=== PATIENT | female | born 1950 | race Caucasian/White ===

== ENCOUNTER 2017-01-20 02:47 | Emergency (ER) | payer OTHER ==
[~2017-01-20 02:47] MED LIST: ALL DAY10 MG OR; ALPH-E400 UNIT OR; AMBIEN5 MG PO; AMLODIPINE10 MG PO; AMLODIPINE5 MG OR; AMOXICILLIN/CL875 MG PO; AMOXICILLIN875 MG OR; AMOXICILLIN875 MG PO; AMPICILLIN500 MG PO; ANTI-FUNGAL12 EX; ASA LOW DOSE81 MG OR; ASA OR; ATARAX OR; AUGMENTIN875TAB OR; AUGMENTIN875TAB PO; AZITHROMYCIN500 MG PO; BACTRIM DS1 TAB PO; BENADRYL 50MG C50 MG OR; BENADRYL25 MG OR; BENAZEPRIL20 MG OR; BICILLIN L1.2 MU/SYR IM; CALCIUM600 M1; CEFDINIR300 MG PO; COBAL-10001000 MCG IJ; DEPO-MEDROL80 MG/ML IM; DIFLUCAN150 MG OR; ESTRACE VAG0.1 MG/GM VA; FENOFIBRATE48 MG PO; FISH OIL1000 MG PO; FLONASE NASAL50 MCG; FLUCONAZOLE150 MG PO; FREESTYLE XX; GLIPIZIDE5 MG PO; IRON18 M1 OR; K-DUR/KLOR-CON10 ME1 OR; K-DUR/KLOR-CON10 MEQ PO; LASIX 40 MG TAB40 MG OR; LASIX 40 MG TAB40 MG PO; LOTREL1 CA5 OR; MACROBID100 MG OR; MECLIZINE25 MG OR; MEDDOSEPAK OR; MEDROL4 M1 OR; METFORMIN500 M1 OR; METFORMIN500 M1 PO; METFORMIN500 M2 PO; MUCINEX600 MG PO; NYSTATIN100000 M3 TOP; OMNICEF300 MG OR; OMNICEF300 MG PO; PHENERGAN12.5 MG/TA PO; PHENERGAN25 MG/ML IM; PNEUMOVAX 23 IM; POT CHLORIDE8 MEQ OR; PROMETHAZINE12.5 MG PO; ROBITUSSIN AC10 ML PO; ROZEREM8 MG OR; SERTRALINE50 MG OR; ST JOSEPH AS81 MG PO; TAGAMET300 MG OR; TAGAMET300 MG PO; TESSALON200 MG PO; TRAVATAN0.004 %; TRAVATAN0.004 % OP; VIT E & C EX; VITAMIN C500 MG PO; ZOSTAVAX IM; ZYRTEC10 M2 PO
[2017-01-21] MEDS ORDERED: AMITRIPTYLIN25 MG PO (03:13)
== END 2017-01-20 02:53 | disposition left against medical advice (07) | DRG 951 ==
LOC: ED 02:47 → LWOBS 02:53
DX: Z91.19 Patient's noncompliance with other medical treatment and regimen (principal)

== ENCOUNTER 2017-01-21 02:53 | Emergency (ER) | payer OTHER ==
[~2017-01-21] VITALS: Ht 172.7 cm; Wt 114.0 kg
[2017-01-21] MEDS ORDERED: AMITRIPTYLIN25 MG PO (03:13)
[2017-01-21 03:41] LABS: HEMATOCRIT 37.6 % (37.0-47.0); HEMOGLOBIN 12.8 g/dl (12.0-16.0); IMMATURE GRANULOCYTES 0.7 % (0.0-1.0); MEAN CELL VOLUME 79.7 fL CALC (80.0-100.0); MEAN CORPUSCULAR HGB 27.1 pG CALC (26.0-32.0); NEUT# 8.5 thou/uL (2.00-7.15); RED BLOOD COUNT 4.72 mill/uL (4.20-5.60); RED CELL DISTRI WIDTH 14.7 % (11.5-15.5)
[2017-01-21 04:00] LABS: ALBUMIN 4.6 g/dL (3.2-5.0); ALKALINE PHOSPHATASE 84 u/l (38-126); ANION GAP 18 (6-22 (CALC)); BILIRUBIN, TOTAL 0.4 mg/dL (0.0-1.4); BUN 18 mg/dL (8-23); BUN/CREATININE RATIO 24 (12-20 (CALC)); CALCIUM 9.4 mg/dL (8.4-10.2); CARBON DIOXIDE 22 mmol/l (22-30); CHLORIDE 107 mmol/l (95-108); CREATININE 0.7 mg/dL (0.5-1.0); GFR > 60 ML/MIN (>=60 (CALC)); GFR FOR AFR.AMER. > 60 ML/MIN (>=60 (CALC)); GLUCOSE 147 mg/dL (82-115); POTASSIUM 3.6 mmol/l (3.5-5.1); SGOT/AST 32 u/l (9-36); SGPT/ALT 48 u/l (11-66); SODIUM 144 mmol/l (137-146)
[2017-01-21 04:01] LABS: PROTHROMBIN TIME 11.2 SECONDS (9.0-12.5)
[2017-01-21 04:12] LABS: MYOGLOBIN 37 ng/mL (0 - 62)
[2017-01-21 05:04] VITALS: BP 138/84
== END 2017-01-21 05:04 | disposition home or self-care (01) | DRG 310 ==
LOC: ED 02:53
PROVIDERS: Emergency Medicine
DX: R00.2 Palpitations (principal)

== ENCOUNTER 2018-08-12 07:31 | Inpatient (IN) | payer MEDICARE, OTHER ==
[~2018-08-12] VITALS: Ht 165.1 cm; Wt 107.2 kg
[~2018-08-12 07:31] MED LIST changes: +AMITRIPTYLIN25 MG PO; +ATENOLOL50 MG PO; +CENTRUM PO; +LIPITOR20 M1 PO; +NORVASC10 M1 PO; +VALSARTAN40 MG PO
--- NOTE | 2018-08-12 07:37 | NUR ---
PT AMBULATED TO ROOM WITH A STEADY GAIT FOR BEDSIDE TRIAGE.
[2018-08-12 08:28] LABS: HEMATOCRIT 35.7 % (37.0-47.0); HEMOGLOBIN 11.9 g/dl (12.0-16.0); IMMATURE GRANULOCYTES 1.7 % (0.0-5.0); MEAN CELL VOLUME 82.8 fL CALC (80.0-100.0); MEAN CORPUSCULAR HGB 27.6 pG CALC (26.0-32.0); MEAN CORPUSCULAR HGB CONC 33.3 g/L CALC (32.0-36.0); NEUT# 6.44 thou/uL (2.00-7.15); RED BLOOD COUNT 4.31 mill/uL (4.20-5.60); RED CELL DISTRI WIDTH 15.1 % (11.5-15.5)
--- NOTE | 2018-08-12 08:30 | NUR ---
PT SUPINE IN BED, NO COMPLAINTS OF PAIN OR DISCOMFORT VOICED.
[2018-08-12 08:40] LABS: ALKALINE PHOSPHATASE 68 u/l (38-126); ANION GAP 16 (6-22 (CALC)); BILIRUBIN, TOTAL 0.6 mg/dL (0.0-1.4); BUN 17 mg/dL (8-23); BUN/CREATININE RATIO 23 (12-20 (CALC)); CARBON DIOXIDE 21 mmol/l (22-30); CHLORIDE 105 mmol/l (95-108); CREATININE 0.8 mg/dL (0.5-1.0); GFR > 60 ML/MIN (>=60 (CALC)); GFR FOR AFR.AMER. > 60 ML/MIN (>=60 (CALC)); POTASSIUM 3.9 mmol/l (3.5-5.1); SGOT/AST 37 u/l (9-36); SODIUM 138 mmol/l (137-146); TOTAL PROTEIN 7.3 g/dL (6.3-8.2)
--- NOTE | 2018-08-12 09:00 | NUR ---
AMB TO BATHROOM WITH STEADY GAIT. PT HAD ONE LOOSE, BRIGHT YELLOW STOOL.
--- NOTE | 2018-08-12 10:00 | NUR ---
OOB TO BSC, PT HAD ONE , LOOSE, BRIGHT YELLOW STOOL.
--- NOTE | 2018-08-12 11:16 | NUR ---
DR BONILLA AT BEDSIDE TO DISCUSS CLINICAL FINDINGS.
--- NOTE | 2018-08-12 12:19 | NUR ---
Admission Note Report Given to: RAS MUELLER Transported by: Wheelchair X Stretcher Transported with: X Nurse Transporter X Patent IV [id number] Ela Teacher
[2018-08-12 12:44] VITALS: BP 123/75
--- NOTE | 2018-08-12 13:06 | NUR ---
REPORT RECEIVED FROM ASUNCION IN ED, PT ARRIVED ON UNIT VIA STRETCHER @ 1233, ALEART AND ORIENTED X 4, TRANSFERRED INDEPENDENTLY FROM STRETCHER TO BED, DENIED PAIN, ORIENTED TO ROOM AND CALL, ALL, SPOUSE ACCOMPANIED PT TO ROOM, SETTLED. AMPICILLIN WAS SPIKED BY ED STAFF BUT WAS NOT CONNECTED TO PT, DR BRAN ROUNDED AND ORDERED NOT TO GIVE AMPICILLIN, WROTE NEW ORDERS, WILL CONTINUE TO MONITOR.
[2018-08-12 15:00] VITALS: BP 132/75
[2018-08-12 19:39] LABS: URINE BILIRUBIN - DIPSTICK NEGATIVE (NEGATIVE); URINE BLOOD DIPSTICK TRACE-INTACT (NEGATIVE); URINE COLOR YELLOW; URINE GLUCOSE - DIPSTICK NEGATIVE (NEGATIVE); URINE KETONE NEGATIVE (NEGATIVE); URINE LEUK ESTERASE TRACE (NEGATIVE); URINE NITRITE - DIPSTICK NEGATIVE (Negative); URINE PROTEIN - DIPSTICK 100 mg/dL (NEG-TRACE); URINE SPECIFIC GRAVITY 1.025; URINE UROBILINOGEN - DIPSTICK 0.2 E.U./dL (0.2)
--- NOTE | 2018-08-12 19:45 | NUR ---
REPORT RECEIVED FROM DAY NURSE AND PT IS IN BED, AIDE IS AT SIDE OBTAINING V/S. FAMILY MEMBER IS ALSO AT BS. POC DISCUSSED AND PT DENIES ANY NEEDS AT THIS PARTICULAR TIME. WILL CONTINUE TO MONITOR, PT HAS BEEN ENCOURAGED TO CALL FOR ASSISTANCE NEEDED.
[2018-08-12 19:50] VITALS: BP 126/52
[2018-08-12 20:57] LABS: C. DIFFICILE TOXIN A&B NEGATIVE (NEGATIVE); URINE CLARITY CLEAR
[2018-08-12 21:08] LABS: URINE SQUAMOUS EPITHELIAL CELL FEW EPI/hpf (0-FEW)
--- NOTE | 2018-08-12 21:21 | NUR ---
PT ASSESSED AND MEDICATED ORDERS PROVIDE W/IV ANTIBIOTIC THERAPY. LUNG SOUNDS ARE CLEAR THROUGHOUT, ABD SOFT NON-TENDER, PT DENIES ANY PAIN/N/V AT THIS TIME. REPORTS 3X LOOSE STOOL SINCE ARRIVING TO THE FLOOR TODAY. NEURO'S INTACT, SKIN IS INTACT, NO NOTED EDEMA, STRONG RADIAL/WEAK PEDAL PULSES. LOCX3. WILL CONTINUE TO MONITOR.
--- NOTE | 2018-08-12 22:16 | NUR ---
ANTIBIOTIC THERAPY CONTINUED ORDERS PROVIDE. PT IS UPRIGHT IN HIGH FOWLERS POSITION IN BED W/LIGHTS AND TV ON. CALL LIGHT AT SIDE. DENIES ANY PAIN/N/V AT THIS TIME. REPORTS NO FURTHER DIAHRREA AT THIS POINT.
[2018-08-13] VITALS: BP 134/61
--- NOTE | 2018-08-13 02:10 | NUR ---
PT IS SLEEPING SOUNDLY DID NOT AWAKE TO MY ENTERING ROOM. NO S/S OF DISTRESS NOTED. CALL LIGHT W/IN REACH.
[2018-08-13 04:24] VITALS: BP 143/54
--- NOTE | 2018-08-13 05:05 | NUR ---
PT APPEARS TO BE SLEEPING AT THIS TIME. NO S/S OF DISTRESS NOTED AT THIS TIME. CALL LIGHT W/IN REACH.
[2018-08-13 06:08] LABS: HEMATOCRIT 33.5 % (37.0-47.0); HEMOGLOBIN 11.2 g/dl (12.0-16.0); IMMATURE GRANULOCYTES 1.2 % (0.0-5.0); MEAN CELL VOLUME 82.5 fL CALC (80.0-100.0); MEAN CORPUSCULAR HGB 27.6 pG CALC (26.0-32.0); MEAN CORPUSCULAR HGB CONC 33.4 g/L CALC (32.0-36.0); NEUT# 5.75 thou/uL (2.00-7.15); RED BLOOD COUNT 4.06 mill/uL (4.20-5.60); RED CELL DISTRI WIDTH 14.7 % (11.5-15.5)
[2018-08-13 06:22] LABS: ALBUMIN 3.6 g/dL (3.2-5.0); ALKALINE PHOSPHATASE 71 u/l (38-126); ANION GAP 14 (6-22 (CALC)); BILIRUBIN, TOTAL 0.4 mg/dL (0.0-1.4); BUN 12 mg/dL (8-23); BUN/CREATININE RATIO 16 (12-20 (CALC)); CARBON DIOXIDE 22 mmol/l (22-30); CHLORIDE 104 mmol/l (95-108); CREATININE 0.7 mg/dL (0.5-1.0); GFR > 60 ML/MIN (>=60 (CALC)); GFR FOR AFR.AMER. > 60 ML/MIN (>=60 (CALC)); MAGNESIUM 1.5 mg/dL (1.6-2.3); POTASSIUM 3.9 mmol/l (3.5-5.1); SGOT/AST 41 u/l (9-36); SODIUM 136 mmol/l (137-146); TOTAL PROTEIN 6.5 g/dL (6.3-8.2)
[2018-08-13 08:21] VITALS: BP 134/75
--- NOTE | 2018-08-13 08:21 | NUR ---
PT RESTING IN BED, NO SIGNS OF DISTRESS NOTED, RESP EVEN AND UNLABORED. PT ALERT AND ORIENTED X3. PT VOICES NO NEEDS OR COMPLAINTS. PT STATES NO PAINS, SHE HAS HAD FREQUENT DIARRHEA, ORDERS FOR STOOL PT NOTIFIED. DISCUSSED POC, ASSESSMENT COMPLETED AT THIS TIME. CALL LIGHT IN REACH,CONTINUE TO MONITOR.
[2018-08-13 15:17] LABS: CHOLESTEROL HDL RATIO 4.5 (<4.4 (CALC))
--- NOTE | 2018-08-13 16:00 | NUR ---
PT CALLED C/O REDNESS TO BUTTOCK, NOTED MILD REDNESS TO BUTTOCK, BARRIER PROTECTANT APPLIED.
[2018-08-13 16:50] VITALS: BP 149/79
[2018-08-13 20:00] VITALS: BP 133/83
--- NOTE | 2018-08-13 20:18 | NUR ---
PT IS IN BED IN HIGH FOWLERS POSITION, ASSISTED TO RESTROOM AND BACK TO BED, DENIES ANY OTHER NEEDS AT THIS TIME. DENIES PAIN/N/V. CALL LIGHT AT BEDSIDE.
--- NOTE | 2018-08-13 22:34 | NUR ---
PT MEDICATED ORDERS PROVIDE AND ASSESSMENT COMPLETED AT THIS TIME. LUNG SOUNDS ARE CLEAR, ABD SOFT NON-TENDER, NEURO'S INTACT, NO S/O DISTRESS AT THIS TIME, PT REPORTS SOFT BROWN STOOL X3 TODAY, DENIES DIFFICULTY OR BURNING W/URINATION, NEURO'S INTACT. KRISSY HOSE AND SOCKS REPLACED. PT DENIES ANY OTHER NEEDS AT THIS TIME. CALL LIGHT AT BEDSIDE.
--- NOTE | 2018-08-14 02:50 | NUR ---
PT APPEARS TO BE SLEEPING AT THIS TIME. CALL LIGHT AT BEDSIDE. NO S/SS OF DISTRESS.
[2018-08-14 04:46] VITALS: BP 132/78
[2018-08-14 04:50] VITALS: BP 161/82
[2018-08-14 05:04] LABS: HEMATOCRIT 37.4 % (37.0-47.0); HEMOGLOBIN 12.2 g/dl (12.0-16.0); MEAN CELL VOLUME 84.6 fL CALC (80.0-100.0); MEAN CORPUSCULAR HGB 27.6 pG CALC (26.0-32.0); MEAN CORPUSCULAR HGB CONC 32.6 g/L CALC (32.0-36.0); RED BLOOD COUNT 4.42 mill/uL (4.20-5.60); RED CELL DISTRI WIDTH 14.6 % (11.5-15.5)
[2018-08-14 05:22] LABS: ANION GAP 16 (6-22 (CALC)); BUN 13 mg/dL (8-23); BUN/CREATININE RATIO 18 (12-20 (CALC)); CARBON DIOXIDE 23 mmol/l (22-30); CHLORIDE 105 mmol/l (95-108); CREATININE 0.7 mg/dL (0.5-1.0); GFR > 60 ML/MIN (>=60 (CALC)); GFR FOR AFR.AMER. > 60 ML/MIN (>=60 (CALC)); MAGNESIUM 1.5 mg/dL (1.6-2.3); POTASSIUM 3.8 mmol/l (3.5-5.1); SODIUM 140 mmol/l (137-146)
--- NOTE | 2018-08-14 06:39 | NUR ---
pt medicated at this time w/iv antibiotic therapy. she is in bed in high fowlers position w/lights off. no s/s of distress noted. denies abd pain/n/v. call light at side and pt encouraged to call.
--- NOTE | 2018-08-14 07:30 | NUR ---
PT RESTING IN BED, NO SIGNS OF DISTRESS NOTED, RESP EVEN AND UNLABORED. PT VOICES NO NEEDS OR COMPLAINTS AT THIS TIME. CALL LIGHT IN REACH,CONTINUE TO MONITOR. DISCUSSED POC, ASSESSMENT COMPLETED.
[2018-08-14 08:00] VITALS: BP 160/72
[2018-08-14 10:58] VITALS: BP 146/72
--- NOTE | 2018-08-14 11:02 | NUR ---
IV MAGNESIUM INFUSION INITATED AT THIS TIME. PT VOICES NO SIGNS OF DISTRESS NOTED, RESP EVEN AND UNLABORED. CALL LIGHT IN REACH,CONTINUE TO MONITOR.
[2018-08-14 11:30] VITALS: BP 147/75
--- NOTE | 2018-08-14 15:00 | NUR ---
PT RESTING IN BED, NO SIGNS OF DISTRESS NOTED, RESP EVEN AND UNLABORED. PT VOICES NO NEEDS OR COMPLAINTS AT THIS TIME. CALL LIGHT IN REACH,CONTINUE TO MONITOR.
[2018-08-14] MEDS ORDERED: METRONIDAZOL500 MG PO (16:08)
[2018-08-14] MEDS ORDERED: CIPROFLOXACIN500 M1 PO (16:09)
[2018-08-14 17:00] VITALS: BP 157/71
--- NOTE | 2018-08-14 17:45 | NUR ---
Discharge instructions given. Patient verbalizes understanding of same. Discharged in stable condition via Wheelchair to Home with friend. All belongings sent with pt.
== END 2018-08-14 17:45 | disposition home or self-care (01) | DRG 387 ==
LOC: ED 07:31 → ED-I 11:47 → ED 12:04 → MS2 12:05
PROVIDERS: Emergency Medicine; Nurse Practitioner Family; ADMIT Internal Medicine Nephrology; ATTEND Internal Medicine Nephrology
DX: K50.111 Crohn's disease of large intestine with rectal bleeding (principal); I10 Essential (primary) hypertension; E11.9 Type 2 diabetes mellitus without complications; E78.5 Hyperlipidemia, unspecified; E83.42 Hypomagnesemia; E66.01 Morbid (severe) obesity due to excess calories; Z68.39 Body mass index [BMI] 39.0-39.9, adult; Z79.84 Long term (current) use of oral hypoglycemic drugs
CPT/HCPCS: J3475; Q9967

== ENCOUNTER 2018-09-28 05:55 | Day surgery (SDC) | payer MEDICARE, OTHER ==
[~2018-09-28] VITALS: Ht 165.1 cm; Wt 103.0 kg
[~2018-09-28 05:55] MED LIST changes: +BENADRYL 25MG C25 MG PO; +CENTRUM SILVER PO; +CIPROFLOXACIN500 M1 PO; +METRONIDAZOL500 MG PO; +VITAMIN B12 PO
[2018-09-28 07:56] VITALS: BP 143/71
== END 2018-09-28 08:10 | disposition home or self-care (01) ==
LOC: ENDO 05:55 → ORM 07:00 → ENDO 08:10
PROVIDERS: ATTEND Surgery
PROC: 0DJD8ZZ Inspection of Lower Intestinal Tract, Via Natural or Artificial Opening Endoscopic (ICD-10-PCS; principal; 2018-09-28)
DX: K50.10 Crohn's disease of large intestine without complications (principal); K64.4 Residual hemorrhoidal skin tags; K57.30 Diverticulosis of large intestine without perforation or abscess without bleeding; K64.8 Other hemorrhoids; L25.9 Unspecified contact dermatitis, unspecified cause; I10 Essential (primary) hypertension; E11.9 Type 2 diabetes mellitus without complications

== ENCOUNTER 2019-09-26 08:20 | Observation (INO) | payer MEDICARE, OTHER ==
[~2019-09-26] VITALS: Ht 162.6 cm; Wt 111.8 kg
[2019-09-26 09:51] LABS: HEMOGLOBIN 11.8 g/dl (12.0-16.0); IMMATURE GRANULOCYTES 1.4 % (0.0-5.0); MEAN CELL VOLUME 82.2 fL CALC (80.0-100.0); MEAN CORPUSCULAR HGB 26.9 pG CALC (26.0-32.0); MEAN CORPUSCULAR HGB CONC 32.8 g/L CALC (32.0-36.0); NEUT# 6.88 thou/uL (2.00-7.15); RED BLOOD COUNT 4.38 mill/uL (4.20-5.60); RED CELL DISTRI WIDTH 14.8 % (11.5-15.5)
[2019-09-26 10:28] LABS: ALKALINE PHOSPHATASE 89 u/l (38-126); ANION GAP 18 (6-22 (CALC)); BILIRUBIN, TOTAL 0.3 mg/dL (0.0-1.4); BUN 18 mg/dL (8-23); BUN/CREATININE RATIO 31 (12-20 (CALC)); CARBON DIOXIDE 23 mmol/l (22-30); CHLORIDE 100 mmol/l (95-108); CREATININE 0.6 mg/dL (0.5-1.0); GFR > 60 ML/MIN (>=60 (CALC)); GFR FOR AFR.AMER. > 60 ML/MIN (>=60 (CALC)); LIPASE 166 u/l (23-300); POTASSIUM 4.3 mmol/l (3.5-5.1); SGOT/AST 64 u/l (9-36); SODIUM 137 mmol/l (137-146)
[2019-09-26 10:30] LABS: ALBUMIN 4.4 g/dL (3.2-5.0); TOTAL PROTEIN 8.3 g/dL (6.3-8.2)
[2019-09-26 10:32] LABS: URINE BILIRUBIN - DIPSTICK NEGATIVE (NEGATIVE); URINE BLOOD DIPSTICK LARGE (NEGATIVE); URINE COLOR YELLOW; URINE GLUCOSE - DIPSTICK NEGATIVE (NEGATIVE); URINE KETONE NEGATIVE (NEGATIVE); URINE NITRITE - DIPSTICK NEGATIVE (Negative); URINE PH 5.5 (4.5-8.0); URINE PROTEIN - DIPSTICK 100 mg/dL (NEG-TRACE); URINE SPECIFIC GRAVITY 1.025; URINE UROBILINOGEN - DIPSTICK 0.2 E.U./dL (0.2)
[2019-09-26 11:03] LABS: URINE LEUK ESTERASE SMALL (NEGATIVE)
[2019-09-26 11:08] LABS: ACT PARTIAL THROMBO TIME 28.1 SECONDS (20.0-32.5); INTERNATIONAL NORMALIZED RATIO 1.1 RATIO (0.7-1.3); PROTHROMBIN TIME 11.2 SECONDS (9.0-12.5)
[2019-09-26 11:12] LABS: URINE RBC 0-2 RBC/hpf (0-5)
[2019-09-26 13:54] VITALS: BP 187/87
[2019-09-26 15:47] VITALS: BP 163/63
[2019-09-26 21:07] VITALS: BP 153/72
[2019-09-27 00:39] VITALS: BP 136/74
[2019-09-27 04:05] VITALS: BP 135/61
[2019-09-27 05:12] LABS: HEMATOCRIT 36.8 % (37.0-47.0); HEMOGLOBIN 11.7 g/dl (12.0-16.0); IMMATURE GRANULOCYTES 0.9 % (0.0-5.0); MEAN CELL VOLUME 82.7 fL CALC (80.0-100.0); MEAN CORPUSCULAR HGB 26.3 pG CALC (26.0-32.0); MEAN CORPUSCULAR HGB CONC 31.8 g/L CALC (32.0-36.0); NEUT# 8.18 thou/uL (2.00-7.15); RED BLOOD COUNT 4.45 mill/uL (4.20-5.60); RED CELL DISTRI WIDTH 14.7 % (11.5-15.5)
[2019-09-27 05:28] LABS: ANION GAP 16 (6-22 (CALC)); BUN 13 mg/dL (8-23); BUN/CREATININE RATIO 23 (12-20 (CALC)); CARBON DIOXIDE 24 mmol/l (22-30); CHLORIDE 101 mmol/l (95-108); CREATININE 0.6 mg/dL (0.5-1.0); GFR > 60 ML/MIN (>=60 (CALC)); GFR FOR AFR.AMER. > 60 ML/MIN (>=60 (CALC)); POTASSIUM 4.6 mmol/l (3.5-5.1); SODIUM 136 mmol/l (137-146)
[2019-09-27 08:15] VITALS: BP 150/60
[2019-09-27 08:59] VITALS: BP 150/60
== END 2019-09-27 14:00 | disposition home or self-care (01) ==
LOC: ED 08:20 → ED-I 08:43 → ED 11:50 → MS2 11:51
PROVIDERS: Nurse Practitioner Family; ADMIT Internal Medicine; ATTEND Internal Medicine
DX: K57.31 Diverticulosis of large intestine without perforation or abscess with bleeding (principal); N39.0 Urinary tract infection, site not specified; E83.42 Hypomagnesemia; K64.9 Unspecified hemorrhoids; I10 Essential (primary) hypertension; E11.9 Type 2 diabetes mellitus without complications; N83.201 Unspecified ovarian cyst, right side; E78.5 Hyperlipidemia, unspecified; Z79.84 Long term (current) use of oral hypoglycemic drugs
CPT/HCPCS: G0378; J3475